=== PATIENT | female | born 1945 | race African-American/Black ===

== ENCOUNTER 2019-06-05 08:32 | Emergency (ER) | payer MEDICARE, OTHER ==
[~2019-06-05] VITALS: Ht 162.6 cm; Wt 63.5 kg
[~2019-06-05 08:32] MED LIST: ALPRAZOLAM0.5 MG PO; COZAAR50 MG PO; DIOVAN160 MG PO; FERROUS SULFAT325 M2 PO; GLUCOTROL5 MG ORAL; HYDROCHLOROTHIA50 MG ORAL; SPIRONOLACTONE50 MG PO
[2019-06-05] MEDS ORDERED: AMLODIPINE BESYL5 MG ORAL (08:33)
--- NOTE | 2019-06-05 08:40 | Emergency Room Report ---
History of Present Illness General Chief Complaint: Pain Source: Patient Present Illness HPI 74-year-old female history of COPD, hypertension, presents with right upper back pain x10 days, worsened with movement alleviated with rest, patient states that her physical therapist and her primary care doctor has diagnosed her with spasms of pleurisy of the right upper back, patient initially was going to go to urgent care today however it was closed, patient went to the fire department who then brought her to the emergency room for evaluation, she has any chest pain or shortness of breath no dyspnea on exertion no abdominal pain no nausea no vomiting, patient endorses a right upper back ache moderate severity symptoms are intermittent patient presents for evaluation Allergies: Coded Allergies: No Known Allergies (Unverified , 12/26/12) Patient History Past Medical History: see triage record Social History: Reports: smoking Last Menstrual Period: n/a Reviewed Nursing Documentation: PMH: Agreed; PSxH: Agreed Nursing Documentation-PMH Past Medical History: No History, Except For Hx Hypertension: Yes - Hypertension Hx COPD: Yes - COPD Hx Diabetes: Yes - DUE TO MEDS Hx Cancer: No Hx Gastrointestinal Problems: No Hx Neurological Problems: No Review of Systems All Other Systems: negative except mentioned in HPI Physical Exam Vital Signs Date Time Temp Pulse Resp B/P (MAP) Pulse Ox O2 Delivery O2 Flow Rate FiO2 06/05/19 08:28 98.2 77 18 169/98 (121) 95 Room Air Sp02 EP Interpretation: reviewed, normal General Appearance: well appearing, no apparent distress, alert Head: normocephalic, atraumatic Eyes: bilateral eye PERRL, bilateral eye EOMI ENT: uvula midline, moist mucus membranes Neck: supple, thyroid normal, supple/symm/no masses Respiratory: lungs clear, no respiratory distress, no retraction, no accessory muscle use Cardiovascular #1: normal peripheral pulses, regular rate, rhythm, no edema, no gallop, no murmur Gastrointestinal: non tender, soft, no guarding, no rebound Musculoskeletal: normal inspection, other - Right upper back padder to palpation along the latissimus Neurologic: alert, oriented x3 Psychiatric: mood/affect normal Skin: no rash, warm/dry Medical Decision Making Diagnostic Impression: Primary Impression: Upper back pain on right side ER Course 74-year-old female presents most likely with right upper musculoskeletal back pain, on the differential includes pneumothorax, pneumonia, ACS, Pain was well-controlled with medications IV No evidence of any acute processes on EKG troponin, chest x-ray EKG Diagnostic Results EKG Time: 08:51 EP Interpretation: NSR, rate 75, QTc 464, no acute ST elevations, normal axis Rhythm Strip Diag. Results Rhythm Strip Time: 08:42 EP Interpretation: yes Rate: 96 Rhythm: NSR, no PVC's, no ectopy Chest X-Ray Diagnostic Results Chest X-Ray Diagnostic Results : Chest X-Ray Ordered: Yes # of Views/Limited/Complete: 1 View Indication: Other - back pain EP Interpretation: Yes Interpretation: no consolidation, no effusion, no pneumothorax, no acute cardiopulmonary disease Impression: No acute disease Electronically Signed by: Sharad Luna MD Last Vital Signs Date Time Temp Pulse Resp B/P (MAP) Pulse Ox O2 Delivery O2 Flow Rate FiO2 06/05/19 08:28 98.2 77 18 169/98 (121) 95 Room Air Disposition: HOME, SELF-CARE Condition: Stable Scripts Methocarbamol* (ROBAXIN-750*) 750 Mg Tablet 750 MG PO QID, #28 TAB 0 Refills Prov: Sharad Luna MD 06/05/19 Naproxen* (NAPROSYN*) 250 Mg Tablet 250 MG ORAL BID PRN for For Pain, #20 TAB 0 Refills Prov: Sharad Luna MD 06/05/19 Lidocaine Patch* (Lidoderm Patch*) 1 Each Adh..patch 1 PATCH TOPIC DAILY, #7 PATCH 0 Refills Patch(es) may remain in place for up to 12 hours in any 24-hour period. Prov: Sharad Luna MD 06/05/19 Referrals: [facility]. [facility] Patient Instructions: Back Pain, Adult, [id number], Chronic Back Pain Additional Instructions: The patient was provided with discharge instructions, notified to follow-up with a primary care doctor and or specialist in the next 24-48 hours, and to return to the ED if they have worsening of their symptoms. Please note that this report is being documented using DRAGON technology. This can lead to erroneous entry secondary to incorrect interpretation by the dictating instrument. Sharad Luna MD Jun 05, 2019 08:39
[2019-06-05] MEDS ORDERED: NAPROXEN250 MG ORAL (08:45)
[2019-06-05] MEDS ORDERED: Methocarbamol 750mg tab ORAL ONE (08:45)
[2019-06-05] MEDS ORDERED: oxyCODONE HCL/Acetaminophen 5/325mg ORAL ONE (08:45)
[2019-06-05] MEDS ORDERED: ROBAXIN-750750 MG PO (08:45)
[2019-06-05] MEDS ORDERED: LIDODERM700 M1 TOPIC (08:45)
[2019-06-05] MEDS ORDERED: Ketorolac 30mg Inj IV ONE (08:45)
[2019-06-05] MEDS ORDERED: Losartan 25mg tab ORAL ONE (08:45)
[2019-06-05] MEDS ORDERED: Hydromorphone 0.5mg/0.5ml inj IVP ONE (08:45)
--- NOTE | 2019-06-05 08:49 | NUR ---
ED Nurse Note: Pt BIBA from home due to R " under shoulder blade bump" and pain x 10 days. No recent injury reported. Pain 9/10 agata. Skin area dry, clean, intact. Pt is AAOx4, BP 184/108 at this time. Pt did not take her BP medication this morning: Amlodipine and Losartan. Will cont to monitor.
[2019-06-05 08:59] LABS: BASOPHILS % (AUTO) 1.1 % (0.0-2.0); EOSINOPHILS % (AUTO) 0.6 % (0.0-3.0); HEMATOCRIT 44.5 % (37.0-47.0); HEMOGLOBIN 14.1 G/DL (12.0-16.0); LYMPHOCYTES % (AUTO) 22.4 % (20.0-45.0); MEAN CORPUSCULAR VOLUME 86 FL (80-99); MONOCYTES % (AUTO) 5.9 % (1.0-10.0); NEUTROPHILS % (AUTO) 70.1 % (45.0-75.0); PLATELET COUNT 301 K/UL (150-450); RED BLOOD COUNT 5.15 M/UL (4.20-5.40); RED CELL DISTRIBUTION WIDTH 14.4 % (11.6-14.8); WHITE BLOOD COUNT 5.6 K/UL (4.8-10.8)
[2019-06-05 09:08] VITALS: BP 184/108
--- NOTE | 2019-06-05 09:12 | NUR ---
ED Nurse Note: X-ray at bedside for imaging.
[2019-06-05 09:14] LABS: ANION GAP 8 mmol/L (5-15); BLOOD UREA NITROGEN 14 mg/dL (7-18); CALCIUM 9.5 MG/DL (8.5-10.1); CARBON DIOXIDE 28 MMOL/L (21-32); CHLORIDE 103 MMOL/L (98-107); CREATININE 1.3 MG/DL (0.55-1.30); SODIUM 139 MMOL/L (136-145)
[2019-06-05 09:28] LABS: ALANINE AMINOTRANSFERASE 20 U/L (12-78); ALBUMIN 3.8 G/DL (3.4-5.0); ALBUMIN/GLOBULIN RATIO 0.9 (1.0-2.7); ALKALINE PHOSPHATASE 53 U/L (46-116); ASPARTATE AMINO TRANSFERASE 21 U/L (15-37); BILIRUBIN,TOTAL 0.3 MG/DL (0.2-1.0); CKMB 3.3 NG/ML (0.0-3.6); CREATINE KINASE 299 U/L (26-308)
[2019-06-05 09:30] VITALS: BP 153/113
--- NOTE | 2019-06-05 09:30 | NUR ---
ED Nurse Note: Pt reported that she has no pain at this time.
[2019-06-05 10:00] VITALS: BP 160/115
--- NOTE | 2019-06-05 10:00 | NUR ---
ER DISCHARGE NOTE: Patient is cleared to be discharged per ERMD, pt is aox4, on room air, with stable vital signs. pt was given dc and prescription instructions, pt was able to verbalize understanding, pt id band and iv site removed without complications. pt is able to ambulate with steady gait. pt took all belongings.
--- NOTE | 2019-06-05 10:00 | NUR ---
ED Nurse Note: Pt reports no adverse reaction with medications.
--- NOTE | 2019-06-05 10:44 | Diagnostic Imaging Report ---
Indication: Cough Technique: One view of the chest Comparison: none Findings: No acute infiltrates, effusions, or congestion. Tortuous calcified aorta. Normal heart size. Upper mediastinum unremarkable. Impression: No acute process.
--- NOTE | 2019-06-06 13:17 | Cardiology Report ---
APPROVED REPORT EKG Measurement Heart [id number] CO [id number] Normal sinus rhythm Normal ECG
== END 2019-06-05 10:00 | disposition home or self-care (01) ==
LOC: EDBD 08:32 → EMR 08:49
DX: M54.6 Pain in thoracic spine (principal); F17.200 Nicotine dependence, unspecified, uncomplicated; I10 Essential (primary) hypertension; J44.9 Chronic obstructive pulmonary disease, unspecified; E11.9 Type 2 diabetes mellitus without complications
CPT/HCPCS: 36415; 71045; 80053; 82550; 82553; 83690; 84484; 85025; 93005; 96374; 96375; 99284; J1170; J1885; S0028